=== PATIENT | male | born 1970 | race Caucasian/White ===

== ENCOUNTER 2023-08-25 20:39 | Emergency (ER) | payer OTHER ==
[~2023-08-25] VITALS: Ht 165.1 cm; Wt 87.1 kg
[~2023-08-25 20:39] MED LIST: IBUPROFEN800 MG PO; ORPH100T PO
[2023-08-25] MEDS ORDERED: IRBESARTAN-HCT1 EACH PO (21:16)
== END 2023-08-25 22:54 | disposition home or self-care (01) ==
LOC: ER 20:39
DX: I10 Essential (primary) hypertension (principal); R53.81 Other malaise; Z88.6 Allergy status to analgesic agent